=== PATIENT | female | born 1945 | race Caucasian/White ===

== ENCOUNTER 2021-08-01 23:40 | Emergency (ER) | payer OTHER ==
[~2021-08-01] VITALS: Ht 152.4 cm; Wt 67.6 kg
[2021-08-02 00:09] VITALS: BP 176/77
--- NOTE | 2021-08-02 00:15 | NUR ---
PATIENT AMBUALTED TO LOBBY WITH DAUGHTER WITH STEADY GAIT. SEE COMEPLTE ASSESSMENT.
[2021-08-02] MEDS ORDERED: ONDANSETRON 4 MG ODT PO ONE (00:30)
[2021-08-02 01:13] LABS: BASOPHILS # (AUTO) 0.1 K/uL (0.00-0.22); BASOPHILS % (AUTO) 1.6 % (0.0-2.0); EOSINOPHILS # (AUTO) 0.2 K/uL (0-0.4); EOSINOPHILS % (AUTO) 2.7 % (0.0-4.0); HEMATOCRIT 32.6 % (36-48); HEMOGLOBIN 10.9 g/dL (12.0-16.0); LYMPHOCYTES # (AUTO) 1.3 K/uL (2.5-16.5); LYMPHOCYTES % (AUTO) 22.4 % (20.5-51.1); MEAN CORPUSCULAR HEMOGLOBIN 31 pg (27-31); MEAN CORPUSCULAR HGB CONC 33 g/dL (33-37); MEAN CORPUSCULAR VOLUME 91.8 fL (80-94); MONOCYTES # (AUTO) 0.5 K/uL (0.8-1.0); MONOCYTES % (AUTO) 8.7 % (1.7-9.3); NEUTROPHILS # (AUTO) 3.7 K/uL (1.8-7.7); NEUTROPHILS % (AUTO) 64.6 % (42.2-75.2); PLATELET COUNT (AUTO) 381 K/uL (140-450); RED BLOOD CELL COUNT(AUTO) 3.56 MIL/uL (4.20-5.40); RED CELL DISTRIBUTION WIDTH 13.9 % (11.6-13.7); WHITE BLOOD COUNT (AUTO) 5.8 K/uL (4.8-10.8)
[2021-08-02 01:25] LABS: ALBUMIN 3.7 g/dL (3.4-5.0); ANION GAP 15.9 (8-16); ASPARTATE AMINOTRANSFERASE 13 U/L (15-37); CARBON DIOXIDE 22.2 mmol/L (21-32); CHLORIDE 104 mmol/L (98-107); CREATININE 0.9 mg/dL (0.6-1.3); GLUCOSE 97 mg/dL (74-106); POTASSIUM 4.1 mmol/L (3.5-5.1); SODIUM SERUM 138 mmol/L (136-145); TOTAL BILIRUBIN 0.2 mg/dL (0.0-1.0); UREA NITROGEN, BLOOD 16 mg/dL (7-18)
[2021-08-02] MEDS ORDERED: ONDANSETRON 4 MG ODT ONE (02:21)
--- NOTE | 2021-08-02 03:36 | NUR ---
CALLED PATIENT BACK FROM LOBBY, TENT, AND PARKING LOT, NO RESPONSE. NO RESPONSE TO PHONE CALL.
[2021-08-02] MEDS ORDERED: ONDA-188 SL (04:46)
--- NOTE | 2021-08-02 05:20 | NUR ---
CALLED PATIENT BACK FROM TENT, LOBBY, AND PARKING LOT WITH NO RESPONSE.
[2021-08-02 06:00] VITALS: BP 149/70
--- NOTE | 2021-08-02 06:00 | NUR ---
JENISE SENT TO LAB.
== END 2021-08-02 06:00 | disposition home or self-care (01) ==
LOC: MED 23:40
DX: R11.2 Nausea with vomiting, unspecified (principal); K59.00 Constipation, unspecified; I10 Essential (primary) hypertension; E11.9 Type 2 diabetes mellitus without complications; Z20.822 Contact with and (suspected) exposure to COVID-19
CPT/HCPCS: 36415; 71045; 80053; 84484; 85025; 87426; 93005; 99285; Q0162